=== PATIENT | male | born 1950 | race Caucasian/White ===

== ENCOUNTER 2017-05-23 16:38 | Emergency (ER) | payer BC ==
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
== END 2017-05-23 18:19 | disposition home or self-care (01) ==
LOC: LL.ED 16:38
DX: S06.0X0A Concussion without loss of consciousness, initial encounter (principal); S01.312A Laceration without foreign body of left ear, initial encounter; S00.83XA Contusion of other part of head, initial encounter; Y04.0XXA Assault by unarmed brawl or fight, initial encounter
CPT/HCPCS: 12011; 99283

== ENCOUNTER 2021-10-19 20:43 | Emergency (ER) | payer MEDICARE, OTHER ==
[~2021-10-19 20:43] MED LIST: Atropine 0.1 MG/ML 10 ML Syringe ONE; Ketamine 500 mg/10 ML MDV ONE; Ondansetron 4 MG/2 ML SDV ONE; Sodium Chloride 0.9% 10 ML Syringe ONE; fentaNYL 50 MCG/ML SDV ONE
[2021-10-19] MEDS ORDERED: Sodium Chloride 0.9% 1,000 ML IV ONE ×2 (20:44→22:49)
[2021-10-19] MEDS ORDERED: Ketamine 500 mg/10 ML MDV ONE (21:02)
[2021-10-19] MEDS ORDERED: fentaNYL 50 MCG/ML SDV ONE (21:17)
[2021-10-19] MEDS ORDERED: Atropine 0.1 MG/ML 10 ML Syringe ONE (21:49)
[2021-10-19] MEDS ORDERED: Ondansetron 4 MG/2 ML SDV ONE (22:26)
[2021-10-20 06:37] LABS: O2 DELIVERY DEVICE NON REBR MASK; O2 FLOW RATE 15 L/min
[2021-10-20 06:38] LABS: ANION GAP 33.8 meq/L (7-15); CHLORIDE,CL 98 mmol/L (98-107); SODIUM,NA 141 mmol/L (136-145)
[2021-10-20 06:45] LABS: O2 SATURATION VENOUS 84 %; PCO2 VENOUS 33 mmHG (41-51); PH,VENOUS 7.22 (7.31-7.41); PO2 VENOUS 57 mmHG
[2021-10-20 06:46] LABS: BASE EXCESS VENOUS -13 mmol/L ((-2)-3); BICARBONATE,VENOUS 13 mmol/L (23-28)
== END 2021-10-19 22:49 ==
LOC: LL.ED 20:43
DX: I44.2 Atrioventricular block, complete (principal); E78.00 Pure hypercholesterolemia, unspecified; I10 Essential (primary) hypertension; E66.9 Obesity, unspecified; Z68.30 Body mass index [BMI] 30.0-30.9, adult; Z79.82 Long term (current) use of aspirin; Z79.899 Other long term (current) drug therapy
CPT/HCPCS: 36415; 70450; 80053; 82803; 83735; 84100; 84484; 85025; 93005; 96374; 96375; 99285; J0461; J1265; J2405; J3010; J3490; J7030; 96376

== ENCOUNTER 2023-01-01 19:37 | Emergency (ER) | payer MEDICARE, OTHER | END 2023-01-01 20:20 | disposition home or self-care (01) | LOC: LL.ED 19:37 | DX: S60.221A Contusion of right hand, initial encounter (principal); E78.00 Pure hypercholesterolemia, unspecified; I10 Essential (primary) hypertension; E66.9 Obesity, unspecified; Z79.82 Long term (current) use of aspirin; Z79.899 Other long term (current) drug therapy; W22.8XXA Striking against or struck by other objects, initial encounter | CPT/HCPCS: 99282; 99283 ==